=== PATIENT | female | born 1955 | race Caucasian/White ===

== ENCOUNTER 2017-12-27 08:27 | Day surgery (SDC) | payer OTHER ==
[~2017-12-27] VITALS: Ht 162.6 cm; Wt 88.5 kg
[~2017-12-27 08:27] MED LIST: ACET325 PO; Benadryl25 MG PO; CHOL10002 PO; CYAN1000 PO; ENOX40I SC; HYDMOR2 PO; IBUP800 PO; MULTIVITAMIN PO; TYLENOL PM
== END 2017-12-27 23:04 | disposition home or self-care (01) ==
LOC: ORSCMMR 08:27 → ORD 09:30 → ORSCMMR 09:30
PROVIDERS: Internal Medicine Gastroenterology
PROC: 0DBN8ZX Excision of Sigmoid Colon, Via Natural or Artificial Opening Endoscopic, Diagnostic (ICD-10-PCS; principal; 2017-12-27 09:30)
PROC: 0DBK8ZX Excision of Ascending Colon, Via Natural or Artificial Opening Endoscopic, Diagnostic (ICD-10-PCS; principal; 2017-12-27 09:30)
DX: Z12.11 Encounter for screening for malignant neoplasm of colon (principal); D12.2 Benign neoplasm of ascending colon; K63.5 Polyp of colon; K64.8 Other hemorrhoids
CPT/HCPCS: 88305; J7030

== ENCOUNTER → 2018-02-06 | Outpatient (CLI) | payer OTHER | END | disposition home or self-care (01) | LOC: LAB SHORT 15:38 → LAB EV 15:38 | DX: N39.0 Urinary tract infection, site not specified (principal) | CPT/HCPCS: 87077; 87086; 87186 ==

== ENCOUNTER → 2018-09-02 | Outpatient (CLI) | payer OTHER ==
[2018-09-06 15:06] LABS: HPV 16 Negative (Negative); HPV 18 Negative (Negative); HPV OTHER HR TYPES Negative (Negative)
== END | disposition home or self-care (01) ==
LOC: LAB SHORT 10:04 → LAB SRC 10:04
PROVIDERS: Nurse Practitioner Family
DX: Z01.419 Encounter for gynecological examination (general) (routine) without abnormal findings (principal); Z85.41 Personal history of malignant neoplasm of cervix uteri
CPT/HCPCS: 87624; G0123

== ENCOUNTER 2021-11-16 15:10 | Emergency (ER) | payer OTHER ==
[~2021-11-16] VITALS: Ht 162.6 cm; Wt 90.7 kg
[2021-11-16 15:46] LABS: BASOPHILS ABSOLUTE AUTO 0.04 K/mm3 (0.00-0.23); BASOPHILS PERCENT AUTO 0 % (0-2); EOSINOPHILS ABSOLUTE AUTO 0.13 K/mm3 (0.00-0.68); EOSINOPHILS PERCENT AUTO 1 % (0-6); Hematocrit 41.1 % (33.0-51.0); Hemoglobin 13.5 g/dL (11.5-16.0); IMMATURE GRAN ABSOLUTE AUTO 0.05 K/mm3 (0.00-0.10); IMMATURE GRAN PERCENT AUTO 0 % (0-1); LYMPHOCYTES ABSOLUTE AUTO 1.64 K/mm3 (0.84-5.20); LYMPHOCYTES PERCENT AUTO 14 % (21-46); MONOCYTES PERCENT AUTO 11 % (4-13); Mean Corpuscular HGB 30.3 pg (26.0-34.0); Mean Corpuscular HGB Conc 32.8 g/dL (31.5-36.5); Mean Corpuscular Volume 92 fL (80-100); NEUTROPHILS ABSOLUTE AUTO 8.25 K/mm3 (1.96-9.15); NEUTROPHILS PERCENT AUTO 72 % (41-73); Platelet Count 250 K/mm3 (150-400); RDW Coefficient Variation 13.9 % (11.7-14.2); RDW Standard Deviation 47.3 fL (35.1-46.3); Red Blood Cell Count 4.45 M/mm3 (3.80-5.20); White Blood Cell Count 11.41 K/mm3 (4.00-11.30)
[2021-11-16 16:12] LABS: Albumin, Blood 3.6 g/dL (3.4-5.0); Bilirubin, Total 0.7 mg/dL (0.1-1.0); Bun/Creatinine Ratio 20.4 (12.0-20.0); Calcium, Blood 9.2 mg/dL (8.5-10.1); Creatinine, Blood 0.83 mg/dL (0.40-1.00); Globulin, Blood 3.7 g/dL (2.2-4.0); Potassium, Blood 4.3 mmol/L (3.5-5.5); Total Protein, Blood 7.3 g/dL (6.4-8.2)
[2021-11-16] MEDS ORDERED: ASPI81CH PO (18:35)
== END 2021-11-16 18:54 | disposition home or self-care (01) ==
LOC: ER 15:10
PROVIDERS: Physician Assistant
DX: R07.89 Other chest pain (principal); R06.00 Dyspnea, unspecified; Z87.891 Personal history of nicotine dependence
CPT/HCPCS: 36415; 71045; 80053; 83605; 83880; 84484; 85025; 93005; 93010; 99285-25

== ENCOUNTER 2024-02-21 09:03 | Day surgery (SDC) | payer OTHER ==
[~2024-02-21] VITALS: Ht 162.6 cm; Wt 87.3 kg
[~2024-02-21 09:03] MED LIST changes: +ASPI81CH PO; +Lactated Ringer's 1,000 ML IV ONE; +propofoL 50 ML IV ONE
[2024-02-21] MEDS ORDERED: Lactated Ringer's 1,000 ML IV ONE (10:12)
[2024-02-21 11:34] VITALS: BP 129/94
== END 2024-02-21 11:47 | disposition home or self-care (01) ==
LOC: ORSCSDS 09:03
PROVIDERS: Internal Medicine Gastroenterology
PROC: 0DB58ZX Excision of Esophagus, Via Natural or Artificial Opening Endoscopic, Diagnostic (ICD-10-PCS; principal; 2024-02-21 11:15)
PROC: 0DB78ZX Excision of Stomach, Pylorus, Via Natural or Artificial Opening Endoscopic, Diagnostic (ICD-10-PCS; principal; 2024-02-21 11:15)
PROC: 0DBK8ZX Excision of Ascending Colon, Via Natural or Artificial Opening Endoscopic, Diagnostic (ICD-10-PCS; principal; 2024-02-21 11:15)
DX: K21.9 Gastro-esophageal reflux disease without esophagitis (principal); R10.13 Epigastric pain; K59.00 Constipation, unspecified; R14.0 Abdominal distension (gaseous); K22.70 Barrett's esophagus without dysplasia; D12.2 Benign neoplasm of ascending colon; Z86.010 Personal history of colon polyps
CPT/HCPCS: 82947; 88305; 88342; J2704; J7120

== ENCOUNTER 2024-10-16 21:01 | Inpatient (IN) | payer OTHER ==
[~2024-10-16] VITALS: Ht 162.6 cm; Wt 92.4 kg
[~2024-10-16 21:01] MED LIST changes: -Lactated Ringer's 1,000 ML IV ONE; -propofoL 50 ML IV ONE
[2024-10-16] MEDS ORDERED: Ondansetron HCl 2 MG / ML 2ML Vial IV PRN (21:15)
[2024-10-16] MEDS ORDERED: HYDROmorphone HCl/Pf 1MG SYR IV ONE (21:55)
[2024-10-16] MEDS ORDERED: Lactated Ringer's 1,000 ML IV ONE (21:55)
[2024-10-16 22:21] LABS: BASOPHILS ABSOLUTE AUTO 0.05 K/mm3 (0.00-0.23); BASOPHILS PERCENT AUTO 0 % (0-2); EOSINOPHILS ABSOLUTE AUTO 0.06 K/mm3 (0.00-0.68); EOSINOPHILS PERCENT AUTO 1 % (0-6); Hematocrit 39.9 % (33.0-51.0); Hemoglobin 13.8 g/dL (11.5-16.0); IMMATURE GRAN PERCENT AUTO 1 % (0-1); LYMPHOCYTES ABSOLUTE AUTO 1.28 K/mm3 (0.84-5.20); LYMPHOCYTES PERCENT AUTO 10 % (21-46); MONOCYTES ABSOLUTE AUTO 0.95 K/mm3 (0.16-1.47); MONOCYTES PERCENT AUTO 7 % (4-13); Mean Corpuscular HGB 30.7 pg (26.0-34.0); Mean Corpuscular HGB Conc 34.6 g/dL (31.5-36.5); Mean Corpuscular Volume 89 fL (80-100); Mean Platelet Volume 10.7 fL (9.1-12.4); NEUTROPHILS ABSOLUTE AUTO 10.49 K/mm3 (1.96-9.15); NEUTROPHILS PERCENT AUTO 81 % (41-73); Platelet Count 269 K/mm3 (150-400); RDW Coefficient Variation 13.2 % (11.7-14.2); RDW Standard Deviation 43.3 fL (35.1-46.3); Red Blood Cell Count 4.49 M/mm3 (3.80-5.20); White Blood Cell Count 12.93 K/mm3 (4.00-11.30)
[2024-10-16 22:34] LABS: Albumin, Blood 4.1 g/dL (3.4-5.0); Albumin/Globulin Ratio 1.2 (0.8-1.8); Bilirubin, Total 0.4 mg/dL (0.1-1.0); Bun/Creatinine Ratio 24.9 (12.0-20.0); Calcium, Blood 9.6 mg/dL (8.5-10.1); Creatinine, Blood 0.84 mg/dL (0.40-1.00); Globulin, Blood 3.3 g/dL (2.2-4.0); Potassium, Blood 3.7 mmol/L (3.5-5.5); Total Protein, Blood 7.4 g/dL (6.4-8.2)
[2024-10-16] MEDS ORDERED: Piperacillin/Tazobactam Sod 4.5 GM in NS 100 ML IV ONE (23:20)
[2024-10-17] VITALS (20 sets, daily range): BP systolic 127–197; BP diastolic 75–101
[2024-10-17] MEDS ORDERED: NS 1,000 ML IV ONE (01:05)
[2024-10-17] MEDS ORDERED: Ondansetron HCl 2 MG / ML 2ML Vial IV PRN ×2 (01:05→10:00)
[2024-10-17] MEDS ORDERED: FentaNYL Citrate 50 MCG/ML 2 ML Injection IV PRN ×4 (01:10→10:05)
[2024-10-17] MEDS ORDERED: LORA10ER PO (01:41)
[2024-10-17] MEDS ORDERED: MULVITA PO (01:42)
[2024-10-17] MEDS ORDERED: MAGCHL64ER PO (01:42)
[2024-10-17 04:32] LABS: BASOPHILS ABSOLUTE AUTO 0.04 K/mm3 (0.00-0.23); BASOPHILS PERCENT AUTO 0 % (0-2); EOSINOPHILS ABSOLUTE AUTO 0.03 K/mm3 (0.00-0.68); EOSINOPHILS PERCENT AUTO 0 % (0-6); Hematocrit 41.1 % (33.0-51.0); Hemoglobin 13.7 g/dL (11.5-16.0); IMMATURE GRAN PERCENT AUTO 1 % (0-1); LYMPHOCYTES ABSOLUTE AUTO 1.18 K/mm3 (0.84-5.20); LYMPHOCYTES PERCENT AUTO 8 % (21-46); MONOCYTES ABSOLUTE AUTO 1.18 K/mm3 (0.16-1.47); MONOCYTES PERCENT AUTO 8 % (4-13); Mean Corpuscular HGB 30.9 pg (26.0-34.0); Mean Corpuscular HGB Conc 33.3 g/dL (31.5-36.5); Mean Corpuscular Volume 93 fL (80-100); Mean Platelet Volume 10.5 fL (9.1-12.4); NEUTROPHILS ABSOLUTE AUTO 12.35 K/mm3 (1.96-9.15); NEUTROPHILS PERCENT AUTO 83 % (41-73); Platelet Count 265 K/mm3 (150-400); RDW Coefficient Variation 13.3 % (11.7-14.2); RDW Standard Deviation 44.9 fL (35.1-46.3); Red Blood Cell Count 4.44 M/mm3 (3.80-5.20); White Blood Cell Count 14.88 K/mm3 (4.00-11.30)
[2024-10-17 04:56] LABS: Albumin, Blood 3.7 g/dL (3.4-5.0); Albumin/Globulin Ratio 1.1 (0.8-1.8); Bilirubin, Total 0.5 mg/dL (0.1-1.0); Bun/Creatinine Ratio 19.3 (12.0-20.0); Calcium, Blood 8.9 mg/dL (8.5-10.1); Creatinine, Blood 0.78 mg/dL (0.40-1.00); Globulin, Blood 3.3 g/dL (2.2-4.0); Potassium, Blood 4.1 mmol/L (3.5-5.5)
--- NOTE | 2024-10-17 04:57 | NUR ---
SHIFT SUMMARY PT WITH NO ACUTE CHANGES SINCE ARRIVAL. PT INDEPENDENT WITH AMBULATION; SBA FOR IV/OXYGEN. PT GIVEN WIPE DOWN WITH CHG WIPES, NASAL SWAB FOR CLEANSING PERFORMED. PT GIVEN MOUTHWASH AND VERBALIZES UNDERSTANDING TO COMPLETE PRIOR TO SURGERY. PT SPOUSE CONTACT INFORMATION IS ON WHITEBOARD AND HE WOULD LIKE TO BE NOTIFIED OF SURGERY TIME WHEN KNOWN.
[2024-10-17] MEDS ORDERED: Ampicillin Sod/Sulbactam Sod 3 GM in NS 100 ML IV SCH (06:00)
[2024-10-17] MEDS ORDERED: HydrALAZINE HCl 20 MG / ML 1ML Vial IV PRN (06:15)
[2024-10-17] MEDS ORDERED: HyDROXyzine HCl 25 MG Tab PO PRN (07:15)
[2024-10-17] MEDS ORDERED: Losartan Potassium 50 MG Tab PO SCH (08:00)
[2024-10-17] MEDS ORDERED: DULoxetine HCL 30 MG Cap DR PO SCH (09:00)
[2024-10-17] MEDS ORDERED: Lactated Ringer's 1,000 ML IV SCH (09:30)
[2024-10-17] MEDS ORDERED: Sugammadex Sodium 200 MG/2ML SDV (100 MG/ML) ONE (09:50)
[2024-10-17] MEDS ORDERED: propofoL 20 ML IV ONE (09:50)
[2024-10-17] MEDS ORDERED: FentaNYL Citrate 50 MCG/ML 2 ML Injection ONE (09:50)
--- NOTE | 2024-10-17 09:50 | NUR ---
PT TO DAY SURGERY
[2024-10-17] MEDS ORDERED: Ketorolac Tromethamine 30mg Vial ONE (09:51)
[2024-10-17] MEDS ORDERED: Dexamethasone Sod Phos 10 MG/ML 1ML VIAL ONE (09:51)
[2024-10-17] MEDS ORDERED: Ondansetron HCl 2 MG / ML 2ML Vial ONE (09:51)
[2024-10-17] MEDS ORDERED: Rocuronium Bromide 10 MG/ML 5ML Injection IV ONE ×2 (09:51→11:14)
[2024-10-17] MEDS ORDERED: LOSA50 PO (09:58)
[2024-10-17] MEDS ORDERED: HYDROmorphone HCl/Pf 1MG SYR IV PRN (10:00)
[2024-10-17] MEDS ORDERED: Metoclopramide HCl 5MG / ML 2ML Vial IV PRN (10:05)
[2024-10-17] MEDS ORDERED: Lidocaine HCl 1% 5 ML SYR INJ ONE (10:05)
[2024-10-17] MEDS ORDERED: Midazolam HCl 1MG / ML 2ML Vial IV PRN (10:05)
[2024-10-17] MEDS ORDERED: Bupivacaine 0.25% Epi 1:200000 30 ML Vial ONE (10:16)
[2024-10-17] MEDS ORDERED: Phenylephrine HCl 100 MCG/ML-NS 10MLSYR (1MG/10ML) ONE (11:13)
[2024-10-17] MEDS ORDERED: HYDROmorphone HCl/Pf 1MG SYR ONE (11:48)
[2024-10-17] MEDS ORDERED: Piperacillin/Tazobactam Sod 3.375 GM in NS 100 ML IV SCH (12:00)
[2024-10-17] MEDS ORDERED: HYDROcodone 5-APAP 325 TAB PO PRN (12:25)
--- NOTE | 2024-10-17 13:17 | NUR ---
ARRIVED TO SURG FLOOR FROM PACU
--- NOTE | 2024-10-17 18:10 | NUR ---
SHIFT SUMMARY PT IS TOLERATING FOOD AND LIQUIDS WELL. INCISION SITES WNL. LEDY DRAIN w/RED TINGED FLUID. VOIDED SUCCESSFULLY, SBA TO BATHROOM. MODERATE PAIN, MEDICATED PER EMAR. FAMILY CURRENTLY AT BEDSIDE.
--- NOTE | 2024-10-17 19:45 | NUR ---
REPORT FROM RHONDA PRESTON AND SN LYSSA. RN TO ROOM FOR BEDSIDE REPORT. PT WITH NO C/O AT THIS TIME. CALL LIGHT WITHIN REACH.
--- NOTE | 2024-10-18 02:52 | NUR ---
RN TO ROOM AT REQUEST OF PT; POPSICLE PROVIDED. CALL LIGHT WITHIN REACH.
[2024-10-18 05:19] LABS: BASOPHILS ABSOLUTE AUTO 0.02 K/mm3 (0.00-0.23); BASOPHILS PERCENT AUTO 0 % (0-2); EOSINOPHILS ABSOLUTE AUTO 0.01 K/mm3 (0.00-0.68); EOSINOPHILS PERCENT AUTO 0 % (0-6); Hematocrit 40.4 % (33.0-51.0); Hemoglobin 13.3 g/dL (11.5-16.0); IMMATURE GRAN ABSOLUTE AUTO 0.07 K/mm3 (0.00-0.10); IMMATURE GRAN PERCENT AUTO 1 % (0-1); LYMPHOCYTES ABSOLUTE AUTO 0.84 K/mm3 (0.84-5.20); LYMPHOCYTES PERCENT AUTO 6 % (21-46); MONOCYTES ABSOLUTE AUTO 1.17 K/mm3 (0.16-1.47); MONOCYTES PERCENT AUTO 8 % (4-13); Mean Corpuscular HGB 30.6 pg (26.0-34.0); Mean Corpuscular HGB Conc 32.9 g/dL (31.5-36.5); Mean Corpuscular Volume 93 fL (80-100); Mean Platelet Volume 10.5 fL (9.1-12.4); NEUTROPHILS PERCENT AUTO 86 % (41-73); Platelet Count 273 K/mm3 (150-400); RDW Coefficient Variation 13.7 % (11.7-14.2); RDW Standard Deviation 47.1 fL (35.1-46.3); Red Blood Cell Count 4.35 M/mm3 (3.80-5.20); White Blood Cell Count 15.31 K/mm3 (4.00-11.30)
[2024-10-18 05:38] VITALS: BP 142/86
[2024-10-18 05:47] LABS: Bun/Creatinine Ratio 17.6 (12.0-20.0); Calcium, Blood 9.1 mg/dL (8.5-10.1); Creatinine, Blood 0.57 mg/dL (0.40-1.00)
[2024-10-18] MEDS ORDERED: Pantoprazole Sodium 40 MG Injection IV SCH (06:00)
--- NOTE | 2024-10-18 06:01 | NUR ---
SHIFT SUMMARY NO ACUTE EVENTS DURING SHIFT. PT LEDY DRAIN TO RLQ DRESSING CHANGED DURING SHIFT AND IS NOW CDI. PT MEDICATED PER EMAR. PT WITH LOW GRADE TEMPERATURE INTERMITTENTLY BUT DENIES FEELING FEVERISH. PT AMBULATES TO RESTROOM INDEPENDENTLY. PT TOLERATING PO INTAKE WITH NO C/O NAUSEA.
[2024-10-18 07:10] VITALS: BP 161/94
[2024-10-18 10:48] LABS: Albumin, Blood 3.3 g/dL (3.4-5.0); Albumin/Globulin Ratio 0.9 (0.8-1.8); Bilirubin, Direct 0.2 mg/dL (0.0-0.3); Bilirubin, Indirect 0.6 mg/dL (0.1-0.7); Bilirubin, Total 0.8 mg/dL (0.1-1.0); Globulin, Blood 3.7 g/dL (2.2-4.0)
[2024-10-18] MEDS ORDERED: HYDHCL25 PO (11:04)
--- NOTE | 2024-10-18 11:24 | NUR ---
PT WALKED IN THE HALLS WITH FAMILY AND ABLE TO MAINTAIN SP02 ABOVE 90% ON RA. HOWEVER WHILE PT RESTING, SP02 AT 85% ON RA. 1L O2 APPLIED VIA NC AND SP02 NOW 94%. PT ENCOURAGED TO COUGH AND DEEP BREATHE, INSTRUCTED ON I.S. USE
[2024-10-18 12:46] VITALS: BP 154/93
[2024-10-18 15:38] VITALS: BP 134/86
--- NOTE | 2024-10-18 18:39 | NUR ---
SUMMARY: PT IS POD1 LAP GISSELL. A/O, VSS. SURGICAL SITES WNL. TOTAL OF 40ML SS FLUID FROM LEDY DRAIN. DRAIN IS COMPRESSED. PT IS TOLERATING REG DIET, DENIES N/V, PAIN. PT HAD BM AND IS INDEP IN ROOM. USES CALL LIGHT TO MAKE NEEDS KNOWN.
[2024-10-18] MEDS ORDERED: NS 250 ML IV PRN (19:35)
[2024-10-18 19:42] VITALS: BP 135/92
[2024-10-18 23:35] VITALS: BP 132/78
--- NOTE | 2024-10-19 03:59 | NUR ---
SHIFT SUMMARY PT HAS RESTED T/O THE NIGHT. PT REPORTS MINIMAL PAIN, STATES ONLY WITH MOVEMENT. RATES IT 2/10. PT DECLINES ANYTHING FOR PAIN. SURGICAL SITE WNL. SOME LEAKING AROUND LEDY SITE REINFORCED WITH DRAIN SPONGE. VITALS STABLE. IV ANTIBIOTICS CONTINUED. PT HAS BEEN UP AND AMBULATING INDEPENDENT IN THE ROOM. BED IN LOWEST POSITION, CALL LIGHT WITHIN REACH.
[2024-10-19 04:57] VITALS: BP 131/88
[2024-10-19 06:02] LABS: BASOPHILS ABSOLUTE AUTO 0.03 K/mm3 (0.00-0.23); BASOPHILS PERCENT AUTO 0 % (0-2); EOSINOPHILS ABSOLUTE AUTO 0.13 K/mm3 (0.00-0.68); EOSINOPHILS PERCENT AUTO 1 % (0-6); Hemoglobin 12.2 g/dL (11.5-16.0); IMMATURE GRAN ABSOLUTE AUTO 0.05 K/mm3 (0.00-0.10); IMMATURE GRAN PERCENT AUTO 0 % (0-1); LYMPHOCYTES ABSOLUTE AUTO 1.37 K/mm3 (0.84-5.20); LYMPHOCYTES PERCENT AUTO 12 % (21-46); MONOCYTES ABSOLUTE AUTO 0.93 K/mm3 (0.16-1.47); MONOCYTES PERCENT AUTO 8 % (4-13); Mean Corpuscular HGB Conc 32.1 g/dL (31.5-36.5); Mean Corpuscular Volume 93 fL (80-100); Mean Platelet Volume 10.6 fL (9.1-12.4); NEUTROPHILS ABSOLUTE AUTO 8.73 K/mm3 (1.96-9.15); NEUTROPHILS PERCENT AUTO 78 % (41-73); Platelet Count 246 K/mm3 (150-400); RDW Coefficient Variation 13.7 % (11.7-14.2); RDW Standard Deviation 46.9 fL (35.1-46.3); Red Blood Cell Count 4.07 M/mm3 (3.80-5.20); White Blood Cell Count 11.24 K/mm3 (4.00-11.30)
[2024-10-19 06:26] LABS: Bun/Creatinine Ratio 17.2 (12.0-20.0); Calcium, Blood 9.3 mg/dL (8.5-10.1); Creatinine, Blood 0.58 mg/dL (0.40-1.00); Potassium, Blood 3.8 mmol/L (3.5-5.5)
[2024-10-19 07:01] VITALS: BP 164/93
[2024-10-19] MEDS ORDERED: DULO30 PO (10:30)
[2024-10-19] MEDS ORDERED: AMOCLA875 PO (10:31)
--- NOTE | 2024-10-19 10:52 | NUR ---
DISCHARGE PT WAS DISCHARGED APPROX 1040. PROVIDED DISCHARGE EDUCATION AND INSTRUCTIONS. PATIENT ASKED APPROPRIATE QUESTIONS AND VERBALIZED UNDERSTANDING. IV AND TELE REMOVED FROM PT. TELE BOX RETURNED TO PCU. PT LEFT WITH ALL BELONGINGS. DROVE PT HOME. AUGMENTIN RX FAXED TO [facility] PER PT REQUEST.
== END 2024-10-19 10:47 | disposition home or self-care (01) | DRG 417 ==
LOC: ER 21:01 → SURS 21:02
PROVIDERS: Emergency Medicine; Internal Medicine; Surgery; ADMIT Internal Medicine
PROC: 0FT44ZZ Resection of Gallbladder, Percutaneous Endoscopic Approach (ICD-10-PCS; principal; 2024-10-17 10:30)
DX: K80.00 Calculus of gallbladder with acute cholecystitis without obstruction (principal); J96.01 Acute respiratory failure with hypoxia; I10 Essential (primary) hypertension; I16.0 Hypertensive urgency; K59.09 Other constipation; R73.03 Prediabetes; E66.9 Obesity, unspecified; Z68.34 Body mass index [BMI] 34.0-34.9, adult; E78.5 Hyperlipidemia, unspecified; E86.0 Dehydration; K57.90 Diverticulosis of intestine, part unspecified, without perforation or abscess without bleeding; K76.0 Fatty (change of) liver, not elsewhere classified; N28.89 Other specified disorders of kidney and ureter; F32.A Depression, unspecified; G47.00 Insomnia, unspecified; Z96.651 Presence of right artificial knee joint; Z90.710 Acquired absence of both cervix and uterus; Z87.891 Personal history of nicotine dependence; Z98.890 Other specified postprocedural states; Z79.899 Other long term (current) drug therapy
CPT/HCPCS: 36415; 71046; 74177; 80048; 80053; 80076; 83690; 83880; 85025; 88304; 93005; 93010; 94760; 96361; 96365; 96374-59; 96375; 96376; 99285-25; A9270; C1729; G0378; J0295; J0360; J1100; J1171; J1885; J2250; J2371; J2405; J2470; J2543; J2704; J3010; J7030; J7120; Q9967